=== PATIENT | female | born 1940 | race Caucasian/White ===

== ENCOUNTER 2019-06-04 18:47 | Inpatient (IN) ==
[2019-06-04] MEDS ORDERED: MORPHINE 4 MG/1 ML VIAL IV STA (19:53)
[2019-06-04] MEDS ORDERED: SODIUM CHLORIDE 0.9% 1,000 ML IV STA (19:53)
[2019-06-04] MEDS ORDERED: ONDANSETRON 4 MG/2 ML VIAL IV STA (19:53)
[2019-06-04 20:00] LABS: Basophils % 0.3 % (0.0-0.8); Hematocrit 30.1 VOL% (35.7-47.0); Hemoglobin 9.5 GM/DL (12.0-16.0); Immature Granulocytes % 0.8 %; Immature Granulocytes Absolute 0.09 #; Lymphocytes # 1.5 10*3/uL (1.4-4.0); Lymphocytes % 13.8 % (21.3-54.2); Mean Corpuscular HGB Conc 31.6 GM/DL (32-36); Mean Corpuscular Volume 84.1 FL (87-102); Mean Platelet Volume 10.9 FL (9.6-12.0); Monocytes % 7.4 % (1.7-12.7); Neutrophils % 77.7 % (38.7-73.9); Platelet Count 432 T/CUMM (130-400); Red Blood Count 3.58 MC/CUMM (3.8-5.5); Red Cell Distribution Width 15.6 % (9.3-17.3); White Blood Count 10.7 T/CUMM (4-12)
[2019-06-04 20:06] LABS: INR 0.9; PT Patient Result 10.1 SECS (9.6-12.2)
[2019-06-04 20:11] LABS: Alanine Aminotransferase 21 U/L (13-56); Albumin 3.1 G/DL (3.4-5.0); Alkaline Phosphatase 91 U/L (45-117); Aspartate Amino Transferase 25 U/L (0-37); Bilirubin,Total < 0.39 MG/DL (0.2-1.0); Blood Urea Nitrogen 51 MG/DL (7-18); Calcium 8.8 MG/DL (8.5-10.1); Estimated Glom Filtration Rate 27 ML/MIN; Glucose 168 MG/DL (74-106); Osmolality,Calculated 292.7 MOS/KG (273-304); Total Protein 6.5 G/DL (6.4-8.3)
[2019-06-04] MEDS ORDERED: ASPIRIN 325 MG TABLET PO STA (20:31)
[2019-06-04 21:56] LABS: Apearance,Urine CLEAR (Clear); Bilirubin,Urine Negative (Negative); Blood, Urine Negative (Negative); Glucose,Urine (UA) Negative (Negative); Hyaline Casts,Urine 4 /LPF (0-3); Ketones,Urine Negative (Negative); Mucus,Urine Occasional /LPF (Occasional); Nitrite,Urine Negative (Negative); Protein,Urine Negative; RBC,Urine 1 /HPF (0-4); Squamous Epithelial Cell,Urine Occasional /HPF (0-10); Urine Color Yellow (Yellow); Urine Specific Gravity 1.014 (1.001-1.035); Urine Urobilinogen < 2.0 EU/DL (0.2-1.0); WBC,Urine <1 /HPF (0-6)
[2019-06-04] MEDS ORDERED: ENOXAPARIN 30 MG/0.3 ML SYRINGE SUBCUT STA (22:34)
[2019-06-04] MEDS ORDERED: PROMETHAZINE 25 MG TABLET PO PRN (22:58)
[2019-06-04] MEDS ORDERED: BISACODYL 5 MG TABLET PO PRN (22:58)
[2019-06-04] MEDS ORDERED: DOCUSATE SODIUM 100 MG CAPSULE PO PRN (22:58)
[2019-06-04] MEDS ORDERED: ACETAMINOPHEN 325 MG TABLET PO PRN (22:58)
[2019-06-04] MEDS ORDERED: ONDANSETRON 4 MG/2 ML VIAL IV PRN (22:58)
[2019-06-04] MEDS ORDERED: hydrALAZINE 20 MG/1 ML VIAL IV PRN (23:03)
[2019-06-04] MEDS ORDERED: GLUCAGON 1 MG VIAL IM PRN (23:03)
[2019-06-04] MEDS ORDERED: DEXTROSE 10% 250 ML BAG IV PRN (23:03)
[2019-06-05] MEDS: ZALEPLON 5 MG CAPSULE PO PRN ×2 (00:55→20:48)
[2019-06-05] MEDS: SODIUM CHLORIDE 0.9% 1,000 ML IV SCH ×2 (01:15→15:52)
[2019-06-05 01:25] LABS: Basophils % 0.3 % (0.0-0.8); Eosinophils % 0.1 % (0.00-10.9); Hematocrit 28.4 VOL% (35.7-47.0); Lymphocytes # 1.8 10*3/uL (1.4-4.0); Mean Corpuscular HGB Conc 31.7 GM/DL (32-36); Mean Corpuscular Volume 84.3 FL (87-102); Mean Platelet Volume 10.3 FL (9.6-12.0); Monocytes % 9.5 % (1.7-12.7); Neutrophils % 70.1 % (38.7-73.9); Platelet Count 361 T/CUMM (130-400); Red Blood Count 3.37 MC/CUMM (3.8-5.5); Red Cell Distribution Width 15.5 % (9.3-17.3); White Blood Count 9.6 T/CUMM (4-12)
[2019-06-05 01:42] LABS: Alanine Aminotransferase 20 U/L (13-56); Albumin 2.9 G/DL (3.4-5.0); Alkaline Phosphatase 84 U/L (45-117); Aspartate Amino Transferase 20 U/L (0-37); Bilirubin,Total < 0.39 MG/DL (0.2-1.0); Blood Urea Nitrogen 47 MG/DL (7-18); Calcium 8.4 MG/DL (8.5-10.1); Estimated Glom Filtration Rate 38 ML/MIN; Glucose 114 MG/DL (74-106); Osmolality,Calculated 289.5 MOS/KG (273-304); Total Protein 6.1 G/DL (6.4-8.3)
[2019-06-05 02:30] LABS: Sedimentation Rate-Westergren 53 MM/HR (0-30)
[2019-06-05 03:25] LABS: Folate > 24.0 NG/ML (5.4-24.0); Vitamin B12 170 PG/ML (211-911)
[2019-06-05] MEDS ORDERED: MAGNESIUM SULF RIDER 4 GM in PREMIX 1 EACH IV ONE (07:15)
[2019-06-05] MEDS: INSULIN LISPRO 100 UNIT/ML SUBCUT SCH ×4 (07:51→20:49)
[2019-06-05] MEDS ORDERED: POLYETHYLENE GLYCOL POWDER 17 GM PACK PO PRN (10:37)
[2019-06-05] MEDS: amLODIPine 10 MG TABLET PO SCH (10:49)
[2019-06-05] MEDS: PANTOPRAZOLE 40 MG TABLET PO SCH (10:49)
[2019-06-05] MEDS ORDERED: methylPREDNISolone SOD SUC 125 MG/2 ML VIAL IV ONE (10:50)
[2019-06-05] MEDS: CYANOCOBALAMIN 1000 MCG/1 ML VIAL IM SCH (10:50)
[2019-06-05] MEDS: metFORMIN 500 MG TABLET PO SCH (16:59)
[2019-06-05] MEDS ORDERED: ATORVASTATIN 80 MG TABLET PO SCH (21:00)
[2019-06-05] MEDS ORDERED: DULoxetine 20 MG CAPSULE PO SCH (21:00)
[2019-06-06] MEDS: SODIUM CHLORIDE 0.9% 1,000 ML IV SCH ×2 (00:20→07:00)
[2019-06-06] MEDS: INSULIN LISPRO 100 UNIT/ML SUBCUT SCH (07:53)
[2019-06-06 08:02] LABS: Calcium 8.3 MG/DL (8.5-10.1); Osmolality,Calculated 285.3 MOS/KG (273-304)
[2019-06-06 08:29] VITALS: BP 144/63
[2019-06-06] MEDS: metFORMIN 500 MG TABLET PO SCH (08:40)
[2019-06-06] MEDS: amLODIPine 10 MG TABLET PO SCH (08:40)
[2019-06-06] MEDS: CYANOCOBALAMIN 1000 MCG/1 ML VIAL IM SCH (08:41)
[2019-06-06] MEDS: PANTOPRAZOLE 40 MG TABLET PO SCH (08:41)
[2019-06-06] MEDS ORDERED: LISINOPRIL 20 MG TABLET PO SCH (09:00)
[2019-06-06] MEDS ORDERED: hydroCHLOROthiazide 25 MG TABLET PO SCH (09:00)
[2019-06-06] MEDS ORDERED: ASPIRIN EC 81 MG TABLET PO SCH (09:00)
[2019-06-07 09:30] LABS: Hemoglobin A1 (Alkaline) 97.1 % (96.5-98.5); Hemoglobin A2 (Alkaline) 2.9 % (1.5-3.5)
== END 2019-06-06 11:31 | disposition home or self-care (01) | DRG 684 ==
LOC: N.ED 18:47 → N.EDINP 22:58 → N.TELEN 23:20
PROVIDERS: ADMIT Family Medicine; ATTEND Family Medicine